=== PATIENT | female | born 1945 | race Two or more races ===

== ENCOUNTER 2020-09-30 19:51 | Inpatient (IN) | payer MEDICARE, OTHER ==
[~2020-09-30] VITALS: Ht 154.9 cm; Wt 74.8 kg
--- NOTE | 2020-09-30 19:53 | NUR ---
PT GAMBIAN SPEAKING. BIBRA FROM HOME C/O DIZZY FOR THE PAST 3 DAYS. 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 NO NEURO DEFICIT. ER MD AT BEDSIDE FOR EVAL. AWAITING ORDERS.
--- NOTE | 2020-09-30 20:16 | NUR ---
PT UNABLE TO PROVIDE URINE SAMPLE.
[2020-09-30 20:28] LABS: BASOPHILS # (AUTO) 0.1 /CMM (0.0-0.2); BASOPHILS % (AUTO) 0.9 % (0.0-2.0); EOSINOPHILS % (AUTO) 1.3 % (0.0-6.0); HEMATOCRIT 40 % (33-45); HEMOGLOBIN 13.3 g/dL (11.5-14.8); LYMPHOCYTES # (AUTO) 1.7 /CMM (0.8-4.8); MEAN CORPUSCULAR HGB CONC 33 g/dl (31.0-36.0); MEAN CORPUSCULAR VOLUME 89 fL (82-100); MONOCYTES # (AUTO) 0.6 /CMM (0.1-1.30); MONOCYTES % (AUTO) 7.8 % (2.0-12.0); NEUTROPHILS # (AUTO) 5.2 /CMM (1.8-8.9); PLATELET COUNT (AUTO) 308 /CMM (150-450); RED BLOOD CELL COUNT(AUTO) 4.56 MIL/uL (4.0-5.2); WHITE BLOOD COUNT (AUTO) 7.6 K/uL (4.3-11.0)
[2020-09-30] MEDS ORDERED: MECLIZINE HCL 12.5 MG TABLET PO ONE (20:30)
[2020-09-30] MEDS ORDERED: IV NS 0.9% 1,000 ML BAG IV ONE (20:30)
[2020-09-30] MEDS ORDERED: MECLIZINE HCL 25 MG TABLET ONE (20:35)
[2020-09-30 20:36] LABS: CALCIUM, SERUM 9.4 mg/dL (8.5-10.1); CARBON DIOXIDE 20 mmol/L (21-32); CHLORIDE 106 mmol/L (98-107); CREATININE 1.1 mg/dL (0.6-1.3); GLUCOSE 113 mg/dL (74-106); POTASSIUM 3.1 mmol/L (3.5-5.1); SODIUM SERUM 141 mmol/L (136-145); UREA NITROGEN, BLOOD 11 mg/dL (7-18)
--- NOTE | 2020-09-30 20:51 | NUR ---
BROUGHT TO CT
--- NOTE | 2020-09-30 20:52 | NUR ---
BROUGHT BACK FROM CT
[2020-09-30] MEDS ORDERED: ONDANSETRON HCL/PF 4 MG/2 ML VIAL ONE (21:05)
--- NOTE | 2020-09-30 21:10 | NUR ---
CALLED FOR COVID SWAB
[2020-09-30 21:19] LABS: BILIRUBIN,URINE Negative (NEGATIVE); COLOR,URINE YELLOW (YELLOW); LEUKOCYTE ESTERASE ,URINE Small (NEGATIVE); NITRITE, URINE Negative (NEGATIVE); PH,URINE 8.5 (5.0-8.0); PROTEIN,URINE Negative (NEGATIVE); UGLUCOSE Negative (NEGATIVE); UROBILINOGEN,URINE 0.2 EU/dL (0.2)
--- NOTE | 2020-09-30 21:21 | NUR ---
COVID SWABBED, SENT TO LAB
[2020-09-30 21:26] LABS: BACTERIA,URINE Rare /HPF (None Seen); SQUAMOUS EPITHELIAL CELL,UR 0-2 /HPF (None Seen)
[2020-09-30] MEDS ORDERED: ONDANSETRON HCL/PF 4 MG/2 ML VIAL IV ONE (21:30)
[2020-09-30] MEDS ORDERED: POTASSIUM CL. PREMIX PERIPHER. 50 ML IV SCH (22:00)
[2020-09-30] MEDS ORDERED: HYDROCODONE/APAP 5/325MG TABLET PO PRN (22:00)
[2020-09-30] MEDS ORDERED: Z GUARD REMEDY 2 OZ OINT TP PRN (22:00)
[2020-09-30] MEDS ORDERED: MAG HYDROX/AL HYDROX/SIMETH 30 ML UDC PO PRN (22:00)
[2020-09-30] MEDS ORDERED: IV NS 0.9% 1,000 ML IV PRN (22:00)
[2020-09-30] MEDS ORDERED: CEFTRIAXONE 1GM BAG (ER ONLY) 1 GM/50 ML PIGGYBACK IV ONE (22:00)
[2020-09-30] MEDS ORDERED: TEMAZEPAM 15 MG CAPSULE PO PRN (22:00)
[2020-09-30] MEDS ORDERED: MORPHINE SULFATE INJ 2 MG/ML DISP.SYRIN IV PRN (22:00)
[2020-09-30] MEDS ORDERED: LORAZEPAM INJ 2 MG/ML VIAL IV PRN (22:00)
[2020-09-30] MEDS ORDERED: ACETAMINOPHEN 325 MG TABLET PO PRN (22:00)
[2020-09-30] MEDS ORDERED: MAGNESIUM HYDROXIDE 30 ML UDC PO PRN (22:00)
--- NOTE | 2020-09-30 22:09 | NUR ---
PT RESTING COMFORTABLY. NOT IN DISTRESS. VSS.
--- NOTE | 2020-09-30 22:16 | NUR ---
CALL FROM LAB. RAPID COVID NEGATIVE.
[2020-09-30] MEDS ORDERED: ROSU40TA PO (22:22)
[2020-09-30] MEDS ORDERED: GLIM1TAB18 PO (22:22)
[2020-09-30] MEDS ORDERED: EZET10TA6 PO (22:22)
[2020-09-30] MEDS ORDERED: DICL1PAT13 TP (22:22)
[2020-09-30] MEDS ORDERED: NITR0.4T48 SL (22:22)
[2020-09-30] MEDS ORDERED: MECL-225 PO (22:22)
[2020-09-30] MEDS ORDERED: ALEN70SO3 PO (22:22)
[2020-09-30] MEDS ORDERED: FURO20TA4 PO (22:22)
[2020-09-30] MEDS ORDERED: TRIH5TAB3 PO (22:22)
[2020-09-30] MEDS ORDERED: OMEP40CA13 PO (22:22)
--- NOTE | 2020-09-30 22:22 | NUR ---
MED LIST UPDATED.
--- NOTE | 2020-09-30 22:51 | NUR ---
TELE 327-2
--- NOTE | 2020-09-30 23:29 | NUR ---
REPORT GIVEN TO MADELEINE ENGLISH FOR [facility]. PT TRANSFERED PER [employer]S PROTOCOL.
[2020-10-01] VITALS: BP 158/75
[2020-10-01] MEDS: POTASSIUM CL. PREMIX PERIPHER. 50 ML IV SCH ×4 (00:11→03:26)
--- NOTE | 2020-10-01 00:30 | NUR ---
TELE/RN OPENING NOTES RECEIVED REPORT FROM ER NURSE RIO AT 2300 HRS. PATIENT ARRIVED ON UNIT AT 2350 HRS. PATIENT SUSTAINED NO INJURIES DURING TRANSPORT. PATIENT TRANSFERRED TO BED SAFELY. PATIENT IS ALERT AND ORIENTED X 3, MONTENEGRIN SPEAKING. PATIENT BREATHING LABORED, EVEN, NO SIGNS OF RESPIRATORY DISTRESS NOTED. PATIENT CONNECTED TO TELE MONITOR. PATIENT V/S STABLE, PATIENT ON 2L O2 N/C. PATIENT SKIN INTACT. PATIENT ABLE TO AMBULATE TO RESTROOM WITH ASSIST. SAFETY MEASURES ARE IN PLACE, BED IS LOCKED, IN LOW POSITION, SIDE RAILS UP X 2, CALL LIGHT IS WITHIN REACH. WILL CONTINUE WITH PATIENT PLAN OF CARE.
--- NOTE | 2020-10-01 01:15 | NUR ---
TELE/RN NOTES PATIENT RESTLESS, WITH AGITATION. PATIENT GIVEN ATIVAN 0.5 MG IVP. V/S STABLE. WILL CONTINUE TO MONITOR.
[2020-10-01 04:00] VITALS: BP 145/79
--- NOTE | 2020-10-01 05:34 | NUR ---
TEXTED DR. EVANS FOR MRI APPROVAL.
[2020-10-01 06:11] LABS: BASOPHILS % (AUTO) 0.5 % (0.0-2.0); EOSINOPHILS % (AUTO) 1.4 % (0.0-6.0); HEMATOCRIT 40 % (33-45); HEMOGLOBIN 12.9 g/dL (11.5-14.8); LYMPHOCYTES # (AUTO) 0.8 /CMM (0.8-4.8); LYMPHOCYTES % (AUTO) 13.4 % (20.0-44.0); MEAN CORPUSCULAR HGB CONC 32 g/dl (31.0-36.0); MEAN CORPUSCULAR VOLUME 92 fL (82-100); MONOCYTES # (AUTO) 0.5 /CMM (0.1-1.30); MONOCYTES % (AUTO) 8.5 % (2.0-12.0); NEUTROPHILS # (AUTO) 4.8 /CMM (1.8-8.9); NEUTROPHILS % (AUTO) 76.2 % (43.0-81.0); PLATELET COUNT (AUTO) 253 /CMM (150-450); RED BLOOD CELL COUNT(AUTO) 4.32 MIL/uL (4.0-5.2); WHITE BLOOD COUNT (AUTO) 6.3 K/uL (4.3-11.0)
--- NOTE | 2020-10-01 06:55 | NUR ---
TELE/RN CLOSING NOTES PATIENT SLEEPING EASY TO WAKE. PATIENT IS ALERT AND ORIENTED X 3-4. PATIENT BREATHING IS EVEN AND UNLABORED, NO SIGNS OF RESPIRATORY DISTRESS NOTED. NO ACUTE DISTRESS NOTED. IV ACCESS INTACT FLUSHING WELL, R AC 20G RUNNING NS AT 75 CC/HR. PATIENT CONNECTED TO TELE MONITOR. ALL NEEDS HAVE BEEN MET DURING SHIFT. SAFETY MEASURES ARE IN PLACE, BED LOCKED AND PLACED IN LOW POSITION, SIDE RAIL UP X 2, CALL LIGHT WITHIN REACH. WILL ENDORSE CARE TO DAY SHIFT NURSE.
--- NOTE | 2020-10-01 07:03 | NUR ---
RN OPENING NOTES RECEIVED PT AWAKE IN BED AT THIS TIME. AOX4. GUATEMALAN/MOROCCAN SPEAKING. PT ABLE TO COMMUNICATE NEEDS. NO SOB NOTED, NO C//O OF PAIN AT THIS TIME, NO S/O ANY ACUTE DISTRESS NOTED. RESPIRATIONS EVEN AND UNLABORED, PT NOTED ON O2@ 2LPM VIA NC. IV ACCESS NOTED IN RAC G#20, INTACT, PATENT AND FLUSHING WELL. ASPIRATION AND SAFETY PRECAUTIONS IN PLACE AND MAINTAINED AT ALL TIMES. BED IN LOWEST LOCKED POSITION, SIDE RAILS UPX2, TABLE AND CALL LIGHT WITHIN REACH. WILL CONTINUE WITH PLAN OF CARE
--- NOTE | 2020-10-01 07:25 | NUR ---
TELE/RN NOTES CALLED PATIENT AMY TERRAZAS, CONSENT FOR MRI OK.
[2020-10-01 07:33] LABS: CALCIUM, SERUM 8.3 mg/dL (8.5-10.1); POTASSIUM 4.2 mmol/L (3.5-5.1)
[2020-10-01 08:00] VITALS: BP 127/70
[2020-10-01 08:02] LABS: THYROID STIMULATING HORMONE 7.225 uIU/mL (0.358-3.74)
--- NOTE | 2020-10-01 08:31 | NUR ---
PT NOTED ON EXTERNAL TELE PRODUCT MARKETING SPECIALIST READING SR IN THE 70S. WILL CONTINUE WITH PLAN OF CARE
[2020-10-01] MEDS: PANTOPRAZOLE 40 MG VIAL IV SCH (09:51)
[2020-10-01] MEDS: ENOXAPARIN SODIUM 30 MG/0.3 ML DISP.SYRIN SQ SCH (10:10)
[2020-10-01] MEDS: ONDANSETRON HCL/PF 4 MG/2 ML VIAL IVP PRN ×2 (12:55→20:00)
--- NOTE | 2020-10-01 12:59 | NUR ---
PT C/O OF NAUSEA AT THIS TIME. VS BP 127/80, P 79, RR 20, T 98.0, SPO2 98%. PER PT REQUEST, ZOFRAN 4MG IVP Q6H PRN FOR N/V ADMINISTERED AT THIS TIME PER ORDER. WILL CONTINUE TO MONITOR
--- NOTE | 2020-10-01 13:07 | NUR ---
PER DR GUTIERREZ REQUEST, AUTHORIZATION FOR USE OR DISCLOSURE OF HEALTH INFORMATION WAS SIGNED BY MK ([phone]), PT'S SON AT BEDSIDE AT THIS TIME AND FAXED TO [facility] ( [phone]). WILL CONTINUE WITH PLAN OF CARE
[2020-10-01 16:00] VITALS: BP 137/76
--- NOTE | 2020-10-01 19:04 | NUR ---
RN CLOSING NOTES PT AWAKE IN BED AT THIS TIME. PT REMAINED STABLE THROUGHOUT SHIFT. ALL NEEDS, MEDICATIONS, AND CARE ADMINISTERED ANTICIPATED PER ORDER. V/N MANAGEMENT ADMINISTERED. SAFETY PRECAUTIONS IN PLACE AND MAINTAINED AT ALL TIMES. BED IN LOWEST LOCKED POSITION, HOB ELEVATED, SIDE RAILS UP X 2. CALL LIGHT AND TABLE WITHIN REACH. WILL ENDORSE TO LEARNING DESIGNER NURSE FOR CONOR
--- NOTE | 2020-10-01 19:30 | NUR ---
MS RN OPENING NOTES: RECEIVED RESIDENT AWAKE IN BED, ALERT AND ORIENTED, AMBULATORY WITH ASSISTANCE, NO COMPLAIN OF PAIN AND DISCOMFORT AT THIS TIME, A/OX2=3,MONTSERRATIAN/ PERSIAN SPEAKING, ON FULL LIQUID DIET, IV LINE AT RAC #20 ON 2LPM O2 PATIENT, JKEPT CLEAN AND DRY, ALL NEEDS ARE MET, WILL CONTINUE TO MONITOR.
[2020-10-01 20:15] VITALS: BP 134/75
[2020-10-01] MEDS ORDERED: CEFTRIAXONE 1 G in IV D5W 50 ML IV SCH (22:00)
[2020-10-02 06:40] LABS: BASOPHILS % (AUTO) 0.9 % (0.0-2.0); EOSINOPHILS % (AUTO) 3.8 % (0.0-6.0); HEMATOCRIT 37 % (33-45); HEMOGLOBIN 12.2 g/dL (11.5-14.8); LYMPHOCYTES # (AUTO) 1.2 /CMM (0.8-4.8); LYMPHOCYTES % (AUTO) 22.1 % (20.0-44.0); MEAN CORPUSCULAR HGB CONC 33 g/dl (31.0-36.0); MEAN CORPUSCULAR VOLUME 90 fL (82-100); MONOCYTES # (AUTO) 0.5 /CMM (0.1-1.30); MONOCYTES % (AUTO) 9.2 % (2.0-12.0); NEUTROPHILS # (AUTO) 3.5 /CMM (1.8-8.9); PLATELET COUNT (AUTO) 257 /CMM (150-450); RED BLOOD CELL COUNT(AUTO) 4.12 MIL/uL (4.0-5.2); WHITE BLOOD COUNT (AUTO) 5.5 K/uL (4.3-11.0)
[2020-10-02 07:28] LABS: CALCIUM, SERUM 8.1 mg/dL (8.5-10.1); MAGNESIUM 2.2 mg/dL (1.8-2.4); PHOSPHORUS 3.8 mg/dL (2.5-4.9); POTASSIUM 3.7 mmol/L (3.5-5.1)
--- NOTE | 2020-10-02 07:28 | NUR ---
MS RN OPENING NOTE RECEIVED PATIENT IN BED RESTING. PATIENT IS A/O X 3. PATIENT IS BREATHING EVENLY AND LABORED, STABLE ON 2LPM VIA NASAL CANNULA. . NO SIGNS OF RESPIRATORY DISTRESS NOTED. PATIENT DOES NOT COMPLAIN OF PAIN AT THIS TIME. PATIENT SKIN INTACT, KEPT CLEAN AND DRY. PATIENT HAS IV ACCESS ON RAC # 20 GAUGE, RUNNING NS @ 75ML/HR, PATENT AND INTACT. PATIENT ABLE TO AMBULATE TO RESTROOM WITH ASSIST. SAFETY MEASURES AND FALL PRECAUTIONS ARE IN PLACE, BED IS LOCKED, IN LOW POSITION, SIDE RAILS UP X 2, CALL LIGHT IS WITHIN REACH. WILL CONTINUE TO MONITOR.
--- NOTE | 2020-10-02 07:36 | NUR ---
RN CLOSING NOTES: PATIENT WAS IN BED AWAKE, A/OX4 BED IN LOW POSITION, CALL LIGHTS WITHIN REACH, NO COMPLAIN OF PAIN AND DISCOMFORT AT THIS TIME, ON IV HYDRATION 0.9 NSS@75ML/HR, INFUSING WELL, PATIENT IS AMBULATORY WITH SUPERVISION, KEPT CLEAN AND DRY WILL CONTINUE TO MONITOR.
[2020-10-02] MEDS: PANTOPRAZOLE 40 MG VIAL IV SCH (08:19)
[2020-10-02] MEDS: ENOXAPARIN SODIUM 30 MG/0.3 ML DISP.SYRIN SQ SCH (08:21)
[2020-10-02] MEDS ORDERED: ONDA4TAB5 PO (11:45)
--- NOTE | 2020-10-02 13:39 | NUR ---
SPIKE MACHINE FEEDER NOTE RECEIVED ORDER FOR DISCHARGE. PATIENT IS A/O X 3. PATIENT IS BREATHING EVENLY AND LABORED, STABLE ON ROOM AIR. NO SIGNS OF RESPIRATORY DISTRESS NOTED. PATIENT DOES NOT COMPLAIN OF PAIN AT THIS TIME. PATIENT SKIN INTACT, CLEAN AND DRY. PATIENT HAS IV ACCESS AND ID BAND WAS REMOVED. DISCHARGE INSTRUCTIONS WERE GIVEN ORALLY WITH HELP OF THE SON AND WRITTEN. PATIENT VERBALIZED UNDERSTANDING. PATIENT LEFT VIA PRIVATE CAR IN STABLE CONDITION.
== END 2020-10-02 13:40 | disposition home or self-care (01) | DRG 149 ==
LOC: ER 19:53 → TELE 23:09 → MED 10-01 11:53
PROVIDERS: ADMIT Nurse Practitioner Acute Care; ATTEND Nurse Practitioner Acute Care
DX: H81.10 Benign paroxysmal vertigo, unspecified ear (principal); N39.0 Urinary tract infection, site not specified; I10 Essential (primary) hypertension; E87.6 Hypokalemia; E66.9 Obesity, unspecified; Z68.31 Body mass index [BMI] 31.0-31.9, adult; Z20.822 Contact with and (suspected) exposure to COVID-19; R73.03 Prediabetes; B96.89 Other specified bacterial agents as the cause of diseases classified elsewhere; E78.5 Hyperlipidemia, unspecified
CPT/HCPCS: 36415; 70450-TC; 80048-TC; 80061-TC; 81001; 82962-TC; 83735-TC; 84100-TC; 84439-TC; 84443-TC; 84484-TC; 85025-TC; 87081-TC; 87086-TC; C9113; C9803; G0378; J0696; J1650; J2060; J2405; J3480; J7030; J7060; J8597

== ENCOUNTER 2020-10-14 20:40 | Emergency (ER) | payer MEDICARE, OTHER ==
[~2020-10-14] VITALS: Ht 160 cm; Wt 79.4 kg
[~2020-10-14 20:40] MED LIST: ALEN70SO3 PO; DICL1PAT13 TP; EZET10TA6 PO; FURO20TA4 PO; GLIM1TAB18 PO; MECL-225 PO; NITR0.4T48 SL; OMEP40CA13 PO; ONDA4TAB5 PO; ROSU40TA PO; TRIH5TAB3 PO
--- NOTE | 2020-10-14 20:45 | NUR ---
pt bibson c/o constipation x10 days. pt aaox4 breathing evenly and unlabored. pt attached to monitor and pox. MD at bedside for digital impaction removal. Will continue to monitor
--- NOTE | 2020-10-14 21:23 | NUR ---
Patient discharged to home in stable condition. Written and verbal after care instructions given. Patient verbalizes understanding of instruction.Pt ambulatory with a steady gait
[2020-10-14 21:42] VITALS: BP 130/55
== END 2020-10-14 21:23 | disposition home or self-care (01) ==
LOC: ER 20:45
DX: K56.41 Fecal impaction (principal); I10 Essential (primary) hypertension; Z79.899 Other long term (current) drug therapy